=== PATIENT | male | born 1995 | race Caucasian/White ===

== ENCOUNTER 2018-02-09 12:39 | Emergency (ER) | payer OTHER ==
[2018-02-09 12:44] VITALS: TEMP 98.1
--- NOTE | 2018-02-09 13:46 | XR ---
EXAMINATION TYPE: XR hand complete RT DATE OF EXAM: 02/09/2018 CLINICAL HISTORY: pain TECHNIQUE: Frontal, lateral and oblique images of the right hand are obtained. COMPARISON: None. FINDINGS: There is no acute fracture/dislocation evident. The joint spaces appear within normal limi ts. The overlying soft tissue appears unremarkable. IMPRESSION: There is no acute fracture or dislocation ICD 10 NO FRACTURE, INITIAL EVALUATION
[2018-02-09] MEDS ORDERED: DIPH,PERTUS(ACELL)TETVAC-LF 0.5 ML VIAL IM ONE (13:49)
[2018-02-09] MEDS ORDERED: LIDOCAINE 2% INJ 20 MG/ML (20 ML MDV) SQ STA (14:18)
--- NOTE | 2018-02-09 14:53 | ED ---
General Adult HPI - General Chief complaint: Wound/Laceration Stated complaint: [facility] - rt hand injury Source: patient, RN notes reviewed, old records reviewed Mode of arrival: ambulatory Limitations: no limitations - History of Present Illness Initial comments: 21-year-old male patient presents to ED with right hand injury. Patient states that he is moving a head start work when it fell and pinched his right hand. Patient primarily having pain in his DIP joint of his second and third phalanx of his right hand. Patient has full range of motion of wrist. Patient has full range of motion of all fingers. Approximately 2 cm laceration on the palmar aspect of third phalanx between DIP and PIP joint. Patient unsure last tetanus immunization. Patient has no other complaints. Patient denies chest pain, shortness breath, abdominal pain, nausea vomiting diarrhea, other muscular skeletal injury. Systemic: Pt denies fatigue, myalgia, fever/chills, rash. Pt denies weakness, night sweats, weight loss. Neuro: Pt denies headache, visual disturbances, syncope or pre-syncope. HEENT: Pt denies ocular discharge or irritation, otalgia, rhinorrhea, pharyngitis or notable lymphadenopathy. Cardiopulmonary: Pt denies chest pain, SOB, heart palpitations, dyspnea on exertion. Abdominal/GI: Pt denies abdominal pain, n/v/d. : Pt denies dysuria, burning w/ urination, frequency/urgency. Denies new onset urinary or bowel incontinence. MSK: Pt denies myalgia, loss of strength or function in extremities. - Related Data Home Medications Medication Instructions Recorded Confirmed No Known Home Medications 02/09/18 02/09/18 Allergies Allergy/AdvReac Type Severity Reaction Status Date / Time No Known Allergies Allergy Verified 02/09/18 12:41 Review of Systems ROS Statement: Those systems with pertinent positive or pertinent negative responses have been documented in the HPI. ROS Other: All systems not noted in ROS Statement are negative. Past Medical History Past Medical History: No Reported History History of Any Multi-Drug Resistant Organisms: None Reported Past Surgical History: No Surgical Hx Reported Past Psychological History: No Psychological Hx Reported Smoking Status: Never smoker Past Alcohol Use History: None Reported Past Drug Use History: None Reported General Exam - General Exam Comments Initial Comments: Constitutional: NAD, AOX3, Pt has pleasant affect. HEENT: NC/AT, trachea midline, neck supple, no lymphadenopathy. Posterior pharynx non erythematous, without exudates. External ears appear normal, without discharge. Mucous membranes moist. Eyes PERRLA, EOM intact. There is no scleral icterus. No pallor noted. Cardiopulmonary: RRR, no murmurs, rubs or gallops, no JVD noted. Lungs CTAB in anterior and posterior rollins. No peripheral edema. Abdominal exam: Abdomen soft and non-distended. Abdomen non-tender to palpation in all 4 quadrants. Bowel sounds active in LLQ. No hepatosplenomegaly. Neuro: CN II-XII grossly intact. MSK: Approximately 2 cm laceration on the third digit between DIP and PIP joint. Mild ecchymoses noted at distal pad of the second phalanx. No nailbed involvement. Radial pulse +2 bilaterally. Capillary refill less than 2 seconds in all nailbeds hand. Neurovascularly intact. Patient has full range of motion of all digits And wrist. No other injuries sustained. Patient has full range of motion in upper and lower extremities, normal strength. Limitations: no limitations Course Vital Signs 02/09/18 02/09/18 12:41 14:54 Temperature 98.1 F Pulse Rate 91 95 Respiratory 18 16 Rate Blood Pressure 168/86 151/85 O2 Sat by Pulse 98 100 Oximetry Procedures - Laceration Laceration #1 Consent Obtained: verbal consent Time Out Performed: Yes Indication: laceration Site: hand Size (cm): 2 Description: linear Depth: simple, single layer Sedation/Analgesia: none Anesthetic Used: lidocaine 2% Anesthesia Technique: local infiltration Amount (mls): 4 Pre-repair: wound explored, deep structures intact Type of Sutures: other (Ethilon) Size of Sutures: 5-0 Number of Sutures: 4 Technique: simple, interrupted Patient Tolerated Procedure: well Medical Decision Making - Medical Decision Making 21-year-old male patient sustained injury when headstone fell on right hand. Patient has full range of motion of hand. Plain film of right hand did not display acute fracture. 2 centimeter laceration on third digit repaired with 4 simple interrupted 5-0 Ethilon sutures. Patient tetanus updated. Patient has no other complaints. Patient given instructions to follow up with PCP in 1-2 days and then again to follow up in 10 days to have sutures removed. Patient verbalizes understanding. Patient can given written instructions. Case discussed with Dr. Marks. Patient to return to ED if new signs symptoms develop , including redness around wound, discharge from wound, streaking, fevers or chills or any other new symptoms. Disposition Clinical Impression: Laceration Disposition: HOME SELF-CARE Condition: Good Instructions: Laceration (ED) Additional Instructions: Patient to adhere to previously discussed treatment plan. Patient to follow up with PCP in 1-2 days. Patient to return to ED if symptoms do not improve. Is patient prescribed a controlled substance at d/c from ED?: No Referrals: None,Stated [Primary Care Provider] - 1-2 days Time of Disposition: 14:53
[2018-02-09 14:56] VITALS: BP 151/85; PULSE 95; RESP 16
== END 2018-02-09 15:05 | disposition home or self-care (01) ==
LOC: EC 12:39
DX: S61.212A Laceration without foreign body of right middle finger without damage to nail, initial encounter (principal); S60.021A Contusion of right index finger without damage to nail, initial encounter; Z23 Encounter for immunization; W20.8XXA Other cause of strike by thrown, projected or falling object, initial encounter; Y93.89 Activity, other specified; Y92.69 Other specified industrial and construction area as the place of occurrence of the external cause; Y99.0 Civilian activity done for income or pay
CPT/HCPCS: 99283; 90471; 12001; 73130; 90715; J2001